=== PATIENT | male | born 1975 | race Two or more races ===

== ENCOUNTER 2018-08-25 11:53 | Emergency (ER) | payer SELFPAY ==
[2018-08-25] MEDS ORDERED: Sodium Chloride 0.9% 10 ML Syringe FLUSH PRN (12:18)
[2018-08-25] MEDS ORDERED: Sodium Chloride 0.9% 1,000 ML IV ONE (12:44)
[2018-08-25] MEDS ORDERED: Insulin Regular, Human 100 Units/ML 3 ML Vial IV ONE (12:44)
[2018-08-25 12:59] VITALS: BP 155/83
[2018-08-25 13:00] LABS: ANION GAP 14.2; CHLORIDE,CL 101 mmol/L (101-111); SODIUM,NA 130 mmol/L (135-145)
[2018-08-25] MEDS ORDERED: Ketorolac 30 MG/ML SDV IVPUSH ONE (13:37)
[2018-08-25] MEDS ORDERED: diphenhydrAMINE 50 MG/ML SDV IVPUSH ONE (13:37)
[2018-08-25] MEDS ORDERED: Butorphanol 2 MG/ML SDV IVPUSH ONE (15:02)
[2018-08-25] MEDS ORDERED: Ondansetron 4 MG/2 ML SDV IV ONE (15:02)
--- NOTE | 2018-08-25 15:47 | EDM.PDOC ---
Scribed by Kaykay Rodrigez 08/25/18 [id number] for Mayelin Turner NP ED HPI GENERAL MEDICAL PROBLEM - General Chief Complaint: Headache Stated Complaint: BLOOD PRESSURE HIGHROBERT [id number] Time Seen by Provider: 08/25/18 12:20 Source of Information: Reports: Patient, RN, RN Notes Reviewed History Limitations: Reports: No Limitations - History of Present Illness INITIAL COMMENTS - FREE TEXT/NARRATIVE: Patient presented to ER with complaint of high blood pressure and headache. Headache began during the night last night. Patient states only headaches in the past have been related to blood pressure. Complains of blurred vision. Denies any other pain. Denies recent illness, cough, cold, congestion, nausea, vomiting, diarrhea, chest pain, shortness of breath breath and rates his pain as 7-8/10. Denies weakness, numbness/tingling. Onset: Gradual Duration: Getting Worse Location: Reports: Generalized Quality: Reports: Ache Severity: Moderate Improves with: Reports: None Worsens with: Reports: None Associated Symptoms: Reports: No Other Symptoms - Related Data Allergies Allergy/AdvReac Type Severity Reaction Status Date / Time codeine Allergy Nausea Verified 07/04/18 14:02 tramadol Allergy Nausea Verified 07/04/18 14:02 Home Meds: Home Meds Aspirin 81 mg PO DAILY 08/25/18 [History] Insulin Aspart [NovoLOG] 35 units SQ ASDIRECTED 08/25/18 [History] Insuln Asp Prot/Insulin Aspart [NovoLOG Mix 70-30] 40 units SQ BEDTIME 08/25/18 [History] Lisinopril 40 mg PO DAILY 08/25/18 [History] Past Medical History Cardiovascular History: Reports: High Cholesterol, Hypertension, Other (See Below) ([place]) Endocrine/Metabolic History: Reports: Diabetes, Type II - Past Surgical History Cardiovascular Surgical History: Reports: Coronary Artery Bypass Social & Family History - Family History Family Medical History: Noncontributory - Caffeine Use Caffeine Use: Reports: None ED ROS GENERAL - Review of Systems Review Of Systems: ROS reveals no pertinent complaints other than HPI. - Physical Exam Exam: See Below Exam Limited By: No Limitations General Appearance: Alert, WD/WN, No Apparent Distress Eye Exam: Bilateral Eye: EOMI, Normal Inspection, PERRL Ears: Normal External Exam, Normal Canal, Hearing Grossly Normal, Normal TMs Nose: Normal Inspection, Normal Mucosa, No Blood Throat/Mouth: Normal Inspection, Normal Lips, Normal Teeth, Normal Gums, Normal Oropharynx, Normal Voice, No Airway Compromise Head Exam: Atraumatic, Normocephalic Neck: Normal Inspection, Supple, Non-Tender, Full Range of Motion Respiratory/Chest: No Respiratory Distress, Lungs Clear, Normal Breath Sounds, No Accessory Muscle Use, Chest Non-Tender Cardiovascular: Normal Peripheral Pulses, Regular Rate, Rhythm, No Edema, No Gallop, No JVD, No Murmur, No Rub GI/Abdominal: Normal Bowel Sounds, Soft, Non-Tender, No Organomegaly, No Distention, No Abnormal Bruit, No Mass (Male) Exam: Deferred Rectal (Males) Exam: Deferred Neuro Exam (Abbreviated): Alert, Oriented, CN II-XII Intact, Normal Cognition, Normal Gait, Normal Reflexes, No Motor/Sensory Deficits Back Exam: Normal Inspection, Full Range of Motion, NT Extremities: Normal Inspection, Normal Range of Motion, Non-Tender, No Pedal Edema, Normal Capillary Refill Psychiatric: Normal Affect, Normal Mood Skin Exam: Warm, Dry, Intact, Normal Color, No Rash Course - Vital Signs Last Recorded V/S: Last Vital Signs Temp 97.1 F 08/25/18 11:57 Pulse 66 08/25/18 11:57 Resp 20 08/25/18 11:57 BP 155/83 H 08/25/18 11:57 Pulse Ox 96 08/25/18 11:57 - Orders/Labs/Meds Orders: Active Orders 24 hr Category Date Time Status Blood Glucose Check, Bedside [RC] ONETIME Care 08/25/18 13:38 Active EKG Documentation Completion [RC] STAT Care 08/25/18 12:18 Active Peripheral IV Care [RC] . DIRECTED Care 08/25/18 12:19 Active Head wo Cont [CT] Stat Exams 08/25/18 12:43 Taken Sodium Chloride 0.9% [Saline Flush] Med 08/25/18 12:18 Active 10 ml FLUSH ASDIRECTED PRN Peripheral IV Insertion Adult [OM.PC] Stat Oth 08/25/18 12:18 Ordered Medication Orders Sodium Chloride (Saline Flush) 10 ml FLUSH ASDIRECTED PRN PRN Reason: Keep Vein Open Last Admin: 08/25/18 12:40 Dose: 10 ml Labs: Laboratory Tests 08/25/18 08/25/18 Range/Units 12:30 12:30 WBC 7.5 (5.0-10.0) 10^3/uL RBC 4.61 (4.6-6.2) 10^6/uL Hgb 14.0 D (14.0-18.0) g/dL Hct 39.7 L (40.0-54.0) % MCV 86.1 (80-100) fL MCH 30.4 (27.0-34.0) pg MCHC 35.3 H (33.0-35.0) g/dL Plt Count 230 (150-450) 10^3/uL Neut % (Auto) 67.6 (42.2-75.2) % Lymph % (Auto) 21.2 (20.5-50.1) % [place] % (Auto) 7.9 (2-8) % Eos % (Auto) 2.8 (1.0-3.0) % Baso % (Auto) 0.5 (0.0-1.0) % Sodium 130 L (135-145) mmol/L Potassium 4.2 (3.6-5.0) mmol/L Chloride 101 (101-111) mmol/L Carbon Dioxide 19.0 L (21.0-31.0) mmol/L Anion Gap 14.2 BUN 23 H (7-18) mg/dL Creatinine 1.0 (0.6-1.3) mg/dL Est Cr Clr Drug Dosing 93.28 mL/min Estimated GFR (MDRD) > 60 BUN/Creatinine Ratio 23.00 Glucose 476 H* (74-105) mg/dL Calcium 8.5 (8.4-10.2) mg/dl Total Bilirubin 1.4 H (0.2-1.0) mg/dL AST 18 (10-42) IU/L ALT 19 (10-60) IU/L Alkaline Phosphatase 112 (42-121) IU/L Troponin I < 0.02 (0.00-0.02) ng/ml Total Protein 6.1 L (6.7-8.2) g/dl Albumin 3.1 L (3.2-5.5) g/dl Globulin 3.0 Albumin/Globulin Ratio 1.03 Meds: Medications Generic Name Dose Route Start Last Admin Trade Name Freq PRN Reason Stop Dose Admin Sodium Chloride 10 ml 08/25/18 12:18 08/25/18 12:40 Saline Flush FLUSH 10 ml ASDIRECTED PRN Administration Keep Vein Open Discontinued Medications Generic Name Dose Route Start Last Admin Trade Name Hill PRN Reason Stop Dose Admin Butorphanol Tartrate 2 mg 08/25/18 15:02 08/25/18 15:13 Stadol IVPUSH 08/25/18 15:03 2 mg ONETIME ONE Administration Diphenhydramine HCl 25 mg 08/25/18 13:37 08/25/18 13:54 Benadryl IVPUSH 08/25/18 13:38 25 mg ONETIME ONE Administration Sodium Chloride 1,000 mls @ 999 mls/hr 08/25/18 12:44 08/25/18 13:05 Normal Saline IV 08/25/18 13:44 999 mls/hr .BOLUS ONE Administration Insulin Human Regular 10 unit 08/25/18 12:44 08/25/18 13:07 Humulin R IV 08/25/18 12:45 10 units ONETIME ONE Administration Ketorolac Tromethamine 30 mg 08/25/18 13:37 08/25/18 13:49 Toradol IVPUSH 08/25/18 13:38 30 mg ONETIME ONE Administration Ondansetron HCl 4 mg 08/25/18 15:02 08/25/18 15:10 Zofran IV 08/25/18 15:03 4 mg ONETIME ONE Administration - Radiology Interpretation Free Text/Narrative:: Head CT: FINDINGS: Brain: There is no acute hemorrhage or ischemia, mass or extra-axial collection. There is no white matter disease. 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 Bones/joints: Unremarkable. No acute fracture. Sinuses: Visualized sinuses are unremarkable. No acute sinusitis. Mastoid air cells: Visualized mastoid air cells are unremarkable. No mastoid effusion. Soft tissues: Unremarkable. IMPRESSION: No acute intracranial process or mass. Thank you for allowing us to participate in the care of your patient. 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 Qualified Code(s): E11.65 - Type 2 diabetes mellitus with hyperglycemia; Z79.4 - retirement (current ) use of insulin - Discharge Information *PRESCRIPTION DRUG MONITORING PROGRAM REVIEWED*: No *COPY OF PRESCRIPTION DRUG MONITORING REPORT IN PATIENT JADE: No Instructions: General Headache Without Cause Forms: ED Department Discharge Additional Instructions: Drink plenty of water May use Tylenol and/or Ibuprofen as directed for headache May use Over the counter Benadryl as directed for severe headaches Follow up with your primary care facility Follow up with Medicaid and get medications filled as soon as possible - My Orders Last 24 Hours: My Active Orders 08/25/18 12:18 EKG Documentation Completion [RC] STAT Sodium Chloride 0.9% [Saline Flush] 10 ml FLUSH ASDIRECTED PRN Peripheral IV Insertion Adult [OM.PC] Stat 08/25/18 12:19 Peripheral IV Care [RC] . DIRECTED 08/25/18 12:43 Head wo Cont [CT] Stat 08/25/18 13:38 Blood Glucose Check, Bedside [RC] ONETIME - Assessment/Plan Last 24 Hours: My Active Orders 08/25/18 12:18 EKG Documentation Completion [RC] STAT Sodium Chloride 0.9% [Saline Flush] 10 ml FLUSH ASDIRECTED PRN Peripheral IV Insertion Adult [OM.PC] Stat 08/25/18 12:19 Peripheral IV Care [RC] . DIRECTED 08/25/18 12:43 Head wo Cont [CT] Stat 08/25/18 13:38 Blood Glucose Check, Bedside [RC] ONETIME I have read and agree with the documentation that has been completed regarding this visit. By signing this record, I attest that the documentation was completed in my physical presence and is an accurate record of the encounter.
== END 2018-08-25 15:54 | disposition home or self-care (01) ==
LOC: DL.ED 11:53
DX: R51 Headache (principal); E11.65 Type 2 diabetes mellitus with hyperglycemia; I10 Essential (primary) hypertension; Z88.5 Allergy status to narcotic agent; Z88.8 Allergy status to other drugs, medicaments and biological substances; Z79.899 Other long term (current) drug therapy; Z79.4 Long term (current) use of insulin
CPT/HCPCS: 36415; 70450; 80053; 82962; 84484; 85025; 93005; 96361; 96374; 96375; 99285; J0595; J1200; J1815; J1885; J2405; J7030; 99283

== ENCOUNTER 2018-10-18 09:13 | Emergency (ER) | payer SELFPAY ==
[2018-10-18] MEDS ORDERED: Aspirin 81 MG Tab.Chew PO ONE (09:24)
[2018-10-18] MEDS: Nitroglycerin 0.4 MG Tab.SL SL ONE ×3 (09:35→09:50)
[2018-10-18] MEDS: Sodium Chloride 0.9% 10 ML Syringe FLUSH PRN ×2 (09:35→11:59)
--- NOTE | 2018-10-18 09:36 | EDM.PDOC ---
ED HPI GENERAL MEDICAL PROBLEM - General Chief Complaint: Chest Pain Stated Complaint: CHEST PAIN Time Seen by Provider: 10/18/18 09:25 Source of Information: Reports: Patient, RN, RN Notes Reviewed History Limitations: Reports: No Limitations - History of Present Illness INITIAL COMMENTS - FREE TEXT/NARRATIVE: Pt to ER with c/o chest pain that began about 20-30 minutes ago. He states he has had triple bypass in 2005. States he has not established with a primary care provider, and has not been taking is medications. Patient admits to diabetes, also not taking meds for diabetes. States pain radiates into the left arm and back/shoulder blade. Patient denies any recent illness. Admits to shortness of breath and dizziness when standing. Onset: Today, Sudden Duration: Constant Location: Reports: Chest Quality: Reports: Pressure, Stabbing Severity: Moderate Improves with: Reports: None Worsens with: Reports: None Associated Symptoms: Reports: Chest Pain, Diaphoresis, Shortness of Breath Middle Chest Pain Score (Numeric/FACES): 9 - Related Data Allergies Allergy/AdvReac Type Severity Reaction Status Date / Time codeine Allergy Nausea Verified 07/04/18 14:02 tramadol Allergy Nausea Verified 07/04/18 14:02 Home Meds: Home Meds Aspirin 81 mg PO DAILY 08/25/18 [History] Insulin Aspart [NovoLOG] 35 units SQ ASDIRECTED 08/25/18 [History] Insuln Asp Prot/Insulin Aspart [NovoLOG Mix 70-30] 40 units SQ BEDTIME 08/25/18 [History] Lisinopril 40 mg PO DAILY 08/25/18 [History] Past Medical History Cardiovascular History: Reports: High Cholesterol, Hypertension, Other (See Below) ([place]) Endocrine/Metabolic History: Reports: Diabetes, Type II Other Endocrine/Metabolic History: States he is insulin dependent diabetic, diagnosed at age 23 - Past Surgical History Cardiovascular Surgical History: Reports: Coronary Artery Bypass Social & Family History - Family History Family Medical History: Noncontributory - Caffeine Use Caffeine Use: Reports: None ED ROS GENERAL - Review of Systems Review Of Systems: ROS reveals no pertinent complaints other than HPI. ED EXAM, GENERAL - Physical Exam Exam: See Below Exam Limited By: No Limitations General Appearance: Alert, WD/WN, Moderate Distress Eye Exam: Bilateral Eye: EOMI, Normal Inspection Ears: Normal External Exam, Hearing Grossly Normal Nose: Normal Inspection Throat/Mouth: Normal Inspection, Normal Voice, No Airway Compromise Head: Atraumatic, Normocephalic Neck: Normal Inspection, Supple, Non-Tender, Full Range of Motion Respiratory/Chest: No Respiratory Distress, Lungs Clear, Normal Breath Sounds, No Accessory Muscle Use, Chest Non-Tender Cardiovascular: Normal Peripheral Pulses, Regular Rate, Rhythm, No Edema, No Gallop, No JVD, No Murmur, No Rub Peripheral Pulses: 2+: Radial (L), Radial (R) GI/Abdominal: Normal Bowel Sounds, Soft, Non-Tender (Male) Exam: Deferred Rectal (Males) Exam: Deferred Back Exam: Normal Inspection, Full Range of Motion, NT Extremities: Normal Inspection, Normal Range of Motion, Non-Tender, Normal Capillary Refill, No Pedal Edema Neurological: Alert, Oriented, CN II-XII Intact, Normal Cognition, Normal Gait, Normal Reflexes, No Motor/Sensory Deficits Psychiatric: Normal Affect, Normal Mood, Anxious Skin Exam: Warm, Intact, Normal Color, No Rash, Diaphoretic Lymphatic: No Adenopathy EKG INTERPRETATION EKG Date: 10/18/18 Time: 09:20 Rhythm: NSR Rate (Beats/Min): 89 Comparison: No Change Course - Vital Signs Last Recorded V/S: Last Vital Signs Temp 98.0 F 10/18/18 12:40 Pulse 87 10/18/18 12:40 Resp 17 10/18/18 12:40 BP 130/81 10/18/18 12:40 Pulse Ox 98 10/18/18 12:40 - Orders/Labs/Meds Orders: Active Orders 24 hr Category Date Time Status Blood Glucose Check, Bedside [RC] ONETIME Care 10/18/18 11:00 Active EKG Documentation Completion [RC] STAT Care 10/18/18 09:21 Active EKG Documentation Completion [RC] STAT Care 10/18/18 13:30 Active Peripheral IV Care [RC] . DIRECTED Care 10/18/18 09:21 Active Consistent Carbohydrate Diet [DIET] Diet 10/18/18 Lunch Active Sodium Chloride 0.9% [Saline Flush] Med 10/18/18 09:21 Active 10 ml FLUSH ASDIRECTED PRN Peripheral IV Insertion Adult [OM.PC] Stat Oth 10/18/18 09:21 Ordered Medication Orders Sodium Chloride (Saline Flush) 10 ml FLUSH ASDIRECTED PRN PRN Reason: Keep Vein Open Last Admin: 10/18/18 11:59 Dose: 10 ml Admin: 10/18/18 09:35 Dose: 10 ml Labs: Laboratory Tests 10/18/18 10/18/18 10/18/18 Range/Units 09:32 09:32 09:32 WBC 8.6 (5.0-10.0) 10^3/uL RBC 5.55 (4.6-6.2) 10^6/uL Hgb 16.6 D (14.0-18.0) g/dL Hct 46.8 (40.0-54.0) % MCV 84.3 (80-100) fL MCH 29.9 (27.0-34.0) pg MCHC 35.5 H (33.0-35.0) g/dL Plt Count 262 (150-450) 10^3/uL Neut % (Auto) 65.1 (42.2-75.2) % Lymph % (Auto) 23.6 (20.5-50.1) % [place] % (Auto) 6.8 (2-8) % Eos % (Auto) 4.0 H (1.0-3.0) % Baso % (Auto) 0.5 (0.0-1.0) % PT 8.2 L (9.0-12.0) SEC INR 0.8 L (0.9-1.2) Sodium 133 L (135-145) mmol/L Potassium 4.2 (3.6-5.0) mmol/L Chloride 101 (101-111) mmol/L Carbon Dioxide 21.0 (21.0-31.0) mmol/L Anion Gap 15.2 BUN 20 H (7-18) mg/dL Creatinine 1.1 (0.6-1.3) mg/dL Est Cr Clr Drug Dosing 84.80 mL/min Estimated GFR (MDRD) > 60 BUN/Creatinine Ratio 18.18 Glucose 463 H* (74-105) mg/dL POC Glucose (70-105) mg/dl Calcium 8.3 L (8.4-10.2) mg/dl Total Bilirubin 1.1 H (0.2-1.0) mg/dL AST 28 (10-42) IU/L ALT 32 (10-60) IU/L Alkaline Phosphatase 128 H (42-121) IU/L Troponin I 0.03 H* (0.00-0.02) ng/ml B-Natriuretic Peptide 21 (0-100) pg/ml Total Protein 6.5 L (6.7-8.2) g/dl Albumin 3.2 (3.2-5.5) g/dl Globulin 3.3 Albumin/Globulin Ratio 0.97 10/18/18 10/18/18 Range/Units 11:47 13:26 WBC (5.0-10.0) 10^3/uL RBC (4.6-6.2) 10^6/uL Hgb (14.0-18.0) g/dL Hct (40.0-54.0) % MCV (80-100) fL MCH (27.0-34.0) pg MCHC (33.0-35.0) g/dL Plt Count (150-450) 10^3/uL Neut % (Auto) (42.2-75.2) % Lymph % (Auto) (20.5-50.1) % [place] % (Auto) (2-8) % Eos % (Auto) (1.0-3.0) % Baso % (Auto) (0.0-1.0) % PT (9.0-12.0) SEC INR (0.9-1.2) Sodium (135-145) mmol/L Potassium (3.6-5.0) mmol/L Chloride (101-111) mmol/L Carbon Dioxide (21.0-31.0) mmol/L Anion Gap BUN (7-18) mg/dL Creatinine (0.6-1.3) mg/dL Est Cr Clr Drug Dosing mL/min Estimated GFR (MDRD) BUN/Creatinine Ratio Glucose (74-105) mg/dL POC Glucose 224 H (70-105) mg/dl Calcium (8.4-10.2) mg/dl Total Bilirubin (0.2-1.0) mg/dL AST (10-42) IU/L ALT (10-60) IU/L Alkaline Phosphatase (42-121) IU/L Troponin I 0.02 (0.00-0.02) ng/ml B-Natriuretic Peptide (0-100) pg/ml Total Protein (6.7-8.2) g/dl Albumin (3.2-5.5) g/dl Globulin Albumin/Globulin Ratio Meds: Medications Generic Name Dose Route Start Last Admin Trade Name Hill PRN Reason Stop Dose Admin Sodium Chloride 10 ml 10/18/18 09:21 10/18/18 11:59 Saline Flush FLUSH 10 ml ASDIRECTED PRN Administration Keep Vein Open Discontinued Medications Generic Name Dose Route Start Last Admin Trade Name Hill PRN Reason Stop Dose Admin Aspirin 324 mg 10/18/18 09:24 10/18/18 09:35 Aspirin PO 10/18/18 09:25 324 mg ONETIME ONE Administration Insulin Human Regular 10 unit 10/18/18 10:25 10/18/18 10:30 Humulin R IV 10/18/18 10:26 10 units ONETIME ONE Administration Morphine Sulfate 2 mg 10/18/18 09:58 10/18/18 10:06 Morphine IVPUSH 10/18/18 09:59 2 mg ONETIME ONE Administration Morphine Sulfate 2 mg 10/18/18 11:40 10/18/18 11:57 Morphine IVPUSH 10/18/18 11:41 2 mg ONETIME ONE Administration Nitroglycerin 0.4 mg 10/18/18 09:24 10/18/18 09:50 Nitrostat SL 10/18/18 09:25 0.4 mg Q5M ONE Administration - Radiology Interpretation Free Text/Narrative:: Chest xray: No acute new cardiopulmonary abnormalities See rad report - Re-Assessments/Exams Free Text/Narrative Re-Assessment/Exam: 10/18/18 10:33 Discussed diagnostic findings with patient. Discussed having him stay for a repeat troponin and EKG in 4 hours. He states understanding an agrees with the plan. States no relief of pain from the Nitro, admits to some pain relief with the Morphine. Rates pain 5/10. 10/18/18 14:06 Repeat diagnostics discussed with the patient. Patient states he will continue to work on his Social Security/Medicaid and get coverage, a primary care provider, and get his medications filled. Departure - Departure Time of Disposition: 14:06 Disposition: Home, Self-Care 01 Condition: Fair Clinical Impression: Acute coronary syndrome Instructions: Nonspecific Chest Pain, [id number], Coronary Artery Disease, Male Forms: ED Department Discharge Additional Instructions: Follow up with primary care facility Take ASA 81 mg daily Take medications as prescribed - My Orders Last 24 Hours: My Active Orders 10/18/18 09:21 EKG Documentation Completion [RC] STAT Peripheral IV Care [RC] . DIRECTED Sodium Chloride 0.9% [Saline Flush] 10 ml FLUSH ASDIRECTED PRN Peripheral IV Insertion Adult [OM.PC] Stat 10/18/18 11:00 Blood Glucose Check, Bedside [RC] ONETIME 10/18/18 13:30 EKG Documentation Completion [RC] STAT 10/18/18 Lunch Consistent Carbohydrate Diet [DIET] - Assessment/Plan Last 24 Hours: My Active Orders 10/18/18 09:21 EKG Documentation Completion [RC] STAT Peripheral IV Care [RC] . DIRECTED Sodium Chloride 0.9% [Saline Flush] 10 ml FLUSH ASDIRECTED PRN Peripheral IV Insertion Adult [OM.PC] Stat 10/18/18 11:00 Blood Glucose Check, Bedside [RC] ONETIME 10/18/18 13:30 EKG Documentation Completion [RC] STAT 10/18/18 Lunch Consistent Carbohydrate Diet [DIET]
[2018-10-18] MEDS ORDERED: Morphine 2 MG/ML Syringe IVPUSH ONE ×2 (09:58→11:40)
--- NOTE | 2018-10-18 10:00 | CR ---
Clinical history: 43-year-old male in the emergency department with chest pain. Interpretation: Upright AP portable chest film confirms sternotomy wires and external registered nurse cardiac telemetry leads. No increase in heart size or change in cardiac configuration when compared to 04 July 2018 exam. No cephalization of flow, pulmonary vascular congestion, alveolar edema or dependent pleural fluid accumulation. No new lung mass, hilar lymphadenopathy or focal lobar pneumonia. No atelectasis/collapse. No pneumothorax or free subdiaphragmatic air. CONCLUSION: No acute new cardiopulmonary abnormalities.
[2018-10-18 10:09] LABS: ANION GAP 15.2; CHLORIDE,CL 101 mmol/L (101-111); SODIUM,NA 133 mmol/L (135-145)
[2018-10-18] MEDS ORDERED: Insulin Regular, Human 100 Units/ML 3 ML Vial IV ONE (10:25)
[2018-10-18 13:58] VITALS: BP 130/81
== END 2018-10-18 14:32 | disposition home or self-care (01) ==
LOC: DL.ED 09:13
DX: I24.9 Acute ischemic heart disease, unspecified (principal); E11.9 Type 2 diabetes mellitus without complications; I10 Essential (primary) hypertension; E78.00 Pure hypercholesterolemia, unspecified; Z88.5 Allergy status to narcotic agent; Z79.82 Long term (current) use of aspirin; Z79.899 Other long term (current) drug therapy; Z79.4 Long term (current) use of insulin
CPT/HCPCS: 36415; 71045; 80053; 82962; 83880; 84484; 85025; 85610; 93005; 96374; 96375; 96376; 99285; A9270; J1815; J2270